=== PATIENT | male | born 1950 | race Caucasian/White ===

== ENCOUNTER 2017-07-06 06:53 | Day surgery (SDC) | payer BC ==
[~2017-07-06 06:53] MED LIST: PROPOFOL 500 MG/50 ML EMU IV ONE
[2017-07-06 09:42] VITALS: BP 110/77; PULSE 57; RESP 20; TEMP 97.2; O2SAT 97
== END 2017-07-06 09:55 | disposition home or self-care (01) ==
LOC: SURG 06:53
PROVIDERS: ATTEND Surgery
DX: Z12.11 Encounter for screening for malignant neoplasm of colon (principal); Z86.010 Personal history of colon polyps; K62.1 Rectal polyp
CPT/HCPCS: 45385; 99001; J2704